=== PATIENT | female | born 1940 | race Caucasian/White ===

== ENCOUNTER 2022-04-07 07:56 | Outpatient (CLI) | payer MEDICARE, SELFPAY ==
--- NOTE | 2022-04-07 09:57 | W.ANESCHARGE ---
Anesthesia Charges Start Date/Time Anesthesia Start Date: 04/07/22 Anesthesia Start Time: 09:23 Stop Date/Time Anesthesia Stop Date: 04/07/22 Anesthesia Stop Time: 09:54 Summary Emergency: No Extremes of Age: Over 70-CPT 23651
--- NOTE | 2022-04-07 10:13 | W.ANESCHARGE ---
Anesthesia Charges Start Date/Time Anesthesia Start Date: 04/07/22 Anesthesia Start Time: 09:23 Stop Date/Time Anesthesia Stop Date: 04/07/22 Anesthesia Stop Time: 09:54 Summary Emergency: No Extremes of Age: Over 70-CPT 11305
== END 2022-04-07 07:57 | disposition home or self-care (01) ==
PROVIDERS: PCP Family Medicine; Visit Provider Internal Medicine Gastroenterology
DX: Z12.11 Encounter for screening for malignant neoplasm of colon (principal); K63.89 Other specified diseases of intestine; K64.8 Other hemorrhoids; K57.30 Diverticulosis of large intestine without perforation or abscess without bleeding; Z86.010 Personal history of colon polyps
CPT/HCPCS: 00811; 45380; 88305; 99100; J2704

== ENCOUNTER 2022-04-23 10:00 | Outpatient (RCR) | payer MEDICARE, SELFPAY | END 2022-04-28 16:48 | disposition home or self-care (01) | PROVIDERS: PCP Family Medicine; Visit Provider Podiatrist | DX: M76.60 Achilles tendinitis, unspecified leg (principal); Z51.89 Encounter for other specified aftercare | CPT/HCPCS: 97110; 97140; 97161 ==

== ENCOUNTER 2022-08-12 06:16 | Day surgery (SDC) | payer MEDICARE, SELFPAY ==
[2022-08-12] VITALS (24 sets, daily range): BP systolic 108–152; BP diastolic 41–122; PULSE 56–84; RESP 12–20; TEMP 35.9–37.1; O2SAT 93–98; BMI 29.5
[2022-08-12] MEDS: LACTATED RINGERS 1000 ML 1,000 ML 100 ML IV ×3 (07:15→18:33)
[2022-08-12] MEDS: SODIUM CHLORIDE 0.9 % (FLUSH) 10 ML SYRINGE IVF (07:16)
[2022-08-12] MEDS: BUPIVACAINE 0.25% 30 ML 20 ML INJECTION (08:42)
--- NOTE | 2022-08-12 09:05 | W.ANESCHARGE ---
Anesthesia Charges Start Date/Time Anesthesia Start Date: 08/12/22 Anesthesia Start Time: 07:34 Stop Date/Time Anesthesia Stop Date: 08/12/22 Anesthesia Stop Time: 09:11 Summary Extremes of Age - Over 70 or under 1: MDA
--- NOTE | 2022-08-12 09:15 | W.ANESCHARGE ---
Anesthesia Charges Start Date/Time Anesthesia Start Date: 08/12/22 Anesthesia Start Time: 07:34 Stop Date/Time Anesthesia Stop Date: 08/12/22 Anesthesia Stop Time: 09:11 Summary Extremes of Age - Over 70 or under 1: [employer]
--- NOTE | 2022-08-12 09:17 | PM.GSPRC ---
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 Due to the size and location of the adenoma different treatment options were reviewed including surgical intervention. Risks and benefits of operative intervention were discussed at length with the patient. Risks included but was not limited to: Bleeding, infection, risk of damage to surrounding structures, possible need for additional procedures, possible need to convert to an open operation and postoperative complications such as pneumonia, pulmonary emboli or ME. All questions and concerns were addressed with the patient agreeing to proceed. Procedure Description: After discussing the risks and benefits of the procedure, the patient signed informed consent.? The operative site was marked and the patient was brought to the operating room and placed on the operating table in supine position.? Care was taken to pad the patient's pressure points.?? The patient was then intubated by anesthesia.?? The operative site was then prepped and draped in the usual sterile fashion.? A time-out was then performed. Entrance to the abdomen was obtained via a 5 mm optical trocar in the left upper quadrant. The abdomen was insufflated and briefly surveyed for any signs of injury. There were none. A 12 mm port was placed lateral to the umbilicus as well as a 5 mm port in the left lower quadrant under direct vision. The patient was then placed in Trendelenburg position with the right side up. The small bowel was gently moved out of the way and the appendix was in view. A small amount of dissection was necessary to free the cecum from the lateral pelvic attachments. And epiploic appendage was also dissected away partially from the cecum wall with hook cautery. The appendix was then easily grasped and pulled into view. A mesenteric window was created between the base of the appendix and the mesoappendix. A 35 mm Endo-ROSALINE vascular load stapler was then used to transect the mesoappendix. Two 60 mm staple loads and 145 mm staple load was needed to transect the base of the appendix, taking a portion of the cecum with the specimen. Care was taken not to impinge upon or narrow the ileocecal valve. The staple lines were inspected for bleeding. There was none. The specimen was then sent to pathology for frozen evaluation. The pathologist called back and confirmed the presence of a sessile serrated adenoma with clear margins. The 12 mm port site fascia was closed with 0 Vicryl. All other ports were removed under direct visualization. The skin was then closed with absorbable subcuticular suture. Sterile dressings were then applied. Instrument sponge and needle counts were correct at the end of the case. The patient was then woken and transported to the PACU in stable condition. Findings: Sessile serrated adenoma at the appendiceal base, margins clear. Anesthesia: GETA Surgeon: Pretty Ricks MD Estimated blood loss (mL): 5 Specimen: Appendix Condition: stable Disposition: floor
[2022-08-12] MEDS: ONDANSETRON 2 MG/ML inj IVP (10:28)
[2022-08-12] MEDS: ACETAMINOPHEN 325 MG TABLET 650 MG PO (10:39)
[2022-08-12] MEDS: IBUPROFEN 600 MG TABLET PO (12:14)
--- NOTE | 2022-08-12 14:32 | PC.NURSE ---
End of Shift: Patient pleasant and cooperative. Patient vitally stable, lungs clear, BS WNL, IV running LR at 100. When science writer asks patient to rate pain, patient responds I don't know, patient did say she had a headache and abdomen was tender. Tylenol and ibuprofen given, 8mg of zophran given or nausea. Patient reported nausea resolved. Patient has been laying on side as her back hurts. Patient on 1 L of oxygen NC with sats in the mid 90's. Patient abdomen with x3 lap sites C/D/I. Patient tele=NSR. Patient has taken some ice chip and sips of water. Patient has not yet been out of bed.
[2022-08-12] MEDS: gemfibroziL 600 MG TABLET PO (16:46)
[2022-08-12] MEDS: TRAMADOL HCL 50 MG TABLET PO ×2 (16:46→22:38)
--- NOTE | 2022-08-12 22:54 | PC.NURSE ---
Shift [id number]- Patient is up with SBA- tolerates well. She is up to chair for supper and tolerates regular diet. Ice pack to abdomen, lap sites intact. She is voiding. PRN pain medication providing adequate pain relief. She currently appears restful.
[2022-08-13 04:18] VITALS: BP 117/61; PULSE 67; RESP 16; TEMP 36.4; O2SAT 96
[2022-08-13] MEDS: LACTATED RINGERS 1000 ML 1,000 ML 100 ML IV (04:21)
[2022-08-13] MEDS: IBUPROFEN 600 MG TABLET PO (05:02)
[2022-08-13] MEDS: gemfibroziL 600 MG TABLET PO (06:21)
[2022-08-13] MEDS: LEVOTHYROXINE 75 MCG TABLET PO (06:21)
--- NOTE | 2022-08-13 06:59 | PC.NURSE ---
Pt A&O. VSS on RA. PRN ibuprofen given for pain control. Pt reports adequate relief. SBA to bathroom. Lap sites x3 open to air w/out drainage.
[2022-08-13 07:37] VITALS: PULSE 61
[2022-08-13 08:00] VITALS: BP 113/62; PULSE 61; RESP 18; TEMP 36.6; O2SAT 95
[2022-08-13] MEDS: SERTRALINE 50 MG TABLET PO (08:59)
[2022-08-13] MEDS: LOSARTAN POTASSIUM 50 MG TABLET PO (08:59)
--- NOTE | 2022-08-13 09:47 | PM.DS1 ---
DS: Providers Provider Date Seen: 08/13/22 Primary care physician: Christy Hutson MD Attending Physician on discharge: Pretty Ricks MD DS: Summary Hospital Course Hospital Course: Patient is status post appendectomy and partial cecectomy. Postoperatively she did well. Her pain was controlled with Tylenol and ibuprofen. She was tolerating regular diet and ambulating without difficulty. Time Spent with Patient Time attestation: Total time spent providing and/or coordinating discharge services: Exam Narrative: Exam Narrative: General: Alert and oriented, no acute distress abdomen: Soft, appropriately tender over incision sites. Incisions are clean/dry / intact with Dermabond in place. Const: Vital Signs, click to edit/add: Vital Signs - 24 hr 08/12/22 09:58 08/12/22 10:00 08/12/22 10:17 Temperature 97.5 F L 96.7 F L 97.7 F Pulse Rate 56 L Pulse Rate [Right Pulse Oximeter] 59 L 61 Respiratory Rate 12 12 Blood Pressure [Le ft Arm] 108/49 L 116/49 L 136/122 H Pulse Oximetry 95 98 Oxygen Delivery Me thod Room Air Room Air Nasal Can nula Room Air Nasal Can nula Oxygen Flow Rate 1.5 1.5 08/12/22 10:30 08/12/22 10:45 08/12/22 11:28 Temperature 97.6 F 97.4 F L 97.7 F Pulse Rate Pulse Rate [Right Pulse Oximeter] 59 L 69 66 Respiratory Rate 12 12 12 Blood Pressure [Le ft Arm] 143/64 H 139/64 138/62 Pulse Oximetry 97 97 97 Oxygen Delivery Me thod Room Air Nasal Can nula Room Air Nasal Can nula Room Air Nasal Can nula Oxygen Flow Rate 1.5 1.5 1.5 08/12/22 11:45 08/12/22 13:22 08/12/22 13:24 Temperature 97.9 F 97.9 F Pulse Rate Pulse Rate [Right Pulse Oximeter] 67 83 66 Respiratory Rate 12 12 Blood Pressure [Le ft Arm] 134/66 150/68 H 135/67 Pulse Oximetry 97 95 Oxygen Delivery Me thod Room Air Nasal Can nula Room Air Nasal Can nula Room Air Nasal Can nula Oxygen Flow Rate 1 1 1 08/12/22 13:46 08/12/22 14:51 08/12/22 15:40 Temperature 97.6 F 98.6 F 98.6 F Pulse Rate Pulse Rate [Right Pulse Oximeter] 75 78 82 Respiratory Rate 12 14 18 Blood Pressure [Le ft Arm] 121/58 L 128/60 134/71 Pulse Oximetry 96 95 97 Oxygen Delivery Me thod Room Air Nasal Can nula Room Air Nasal Can nula Nasal Cannula Oxygen Flow Rate 1 1 1 08/12/22 17:06 08/12/22 19:00 08/12/22 23:00 Temperature 98.7 F 98.1 F Pulse Rate 82 Pulse Rate [Right Pulse Oximeter] 84 81 Respiratory Rate 16 16 Blood Pressure [Le ft Arm] 119/64 115/41 L Pulse Oximetry 96 93 Oxygen Delivery Me thod Room Air Room Air Oxygen Flow Rate 08/12/22 23:00 08/13/22 04:18 08/13/22 07:37 Temperature 97.6 F Pulse Rate 62 61 Pulse Rate [Right Pulse Oximeter] 67 Respiratory Rate 16 Blood Pressure [Le ft Arm] 117/61 Pulse Oximetry 96 Oxygen Delivery Me thod Room Air Oxygen Flow Rate Discharge Plan Discharge Disposition: Home, Self-Care Discharging Surgeon: Pretty Ricks Follow-Up Appointment: 2 week follow up, [facility] Prescriptions: New tramadol 50 mg tablet 50 mg PO Q6H PRN (Reason: pain) Qty: 5 0RF Continued ferrous gluconate 324 mg (38 mg iron) tablet 324 mg PO DAILY fluticasone propionate [Allergy Relief (fluticasone)] 50 mcg/actuation spray,suspension 2 spray intranasal DAILY PRN Rx Instructions: administer into each nostril gemfibrozil 600 mg tablet 600 mg PO BID Patient Comments: TAKE 1 TABLET (600 MG) BY MOUTH 2 TIMES DAILY BEFORE MEALS. levothyroxine 75 mcg tablet 75 mcg PO DAILY losartan [Cozaar] 50 mg tablet 50 mg PO DAILY omeprazole 20 mg capsule,delayed release(DR/EC) 20 mg PO BID sertraline [Zoloft] 50 mg tablet 50 mg PO DAILY cetirizine [Aller-Sherry] 10 mg tablet 10 mg PO HS Activity Level: No strenuous activity Activity Detail: No lifting > 20 lbs for 2 weeks. Discharge Diet: Regular Patient Instructions: Tramadol (By mouth), Surgical Site Infections (DC), General Anesthesia (DC), Laparoscopic Appendectomy (DC), Post-Operative Instructions: Appendectomy Additional Instructions: Ok to shower, do not soak in a bath or swim for 2 weeks. Take stool softeners as needed post op for constipation. Forms: Work/School Release Follow-up: Christy Hutson MD [Primary Care Provider] - Discharge Orders: Discharge Order (Routine); Ordered 08/13/22 Ordered By: Pretty Ricks
--- NOTE | 2022-08-13 12:16 | PC.NURSE ---
Pt up independently in room. Tolerating regular diet. Abdomen 3 lap sites closed with glue, intact. IV DC'd, cath tip intact. DC instructions given verbally and in writing to pt and family member. Questions answered, follow up instructions understood. DC @ 1210 via wheelchair to return home with family care through the weekend.
== END 2022-08-13 12:10 | disposition home or self-care (01) ==
LOC: SS 10:41 → MEDSURG 10:42
PROVIDERS: PCP Family Medicine; Visit Provider Surgery
PROC: 0DTJ4ZZ Resection of Appendix, Percutaneous Endoscopic Approach (ICD-10-PCS; CPT 44970; principal; 2022-08-12 07:30)
DX: D12.1 Benign neoplasm of appendix (principal)
CPT/HCPCS: 44970; 44238; 00840; 88309; 99100; A9270; J0330; J1100; J1335; J2405; J2704; J2710; J3010; J3490; J7120

== ENCOUNTER 2023-05-13 22:23 | Emergency (ER) | payer MEDICARE, SELFPAY ==
[2023-05-13 22:26] VITALS: BP 141/79; PULSE 98; RESP 16; TEMP 36.7; O2SAT 99; BMI 28.0
[2023-05-13 22:45] LABS: Appearance Urine Clear (Clear); Bilirubin Urine Negative (Negative); Blood Urine 2+ (Negative); Color Urine Yellow (Yellow); Glucose Urine Negative (Negative); Ketones Urine Trace (Negative); Leukocyte Esterase Urine Trace (Negative); Nitrite Urine Negative (Negative); Protein Urine Trace (Negative); Specific Gravity Urine 1.025 (1.000-1.030); Urobilinogen Urine 0.2 (0.2-1.0); pH Urine 6.5 (5.0-8.5)
[2023-05-13 22:57] LABS: Squamous Epithelial Cell Urine Few (None-Few)
[2023-05-13 23:00] LABS: Basophils Percent Auto 0.2 % (0.0-3.0); Eosinophils Percent Auto 0.5 % (0.0-7.0); Hematocrit 38.4 % (33.0-51.0); Hemoglobin* 12.5 gm/dL (12.0-16.0); Immature Granulocytes Pct Auto 0.2 %; Lymphocytes Percent Auto 19.4 % (20-44); Mean Corpuscular HGB Conc 33 gm/dL (32-36); Mean Corpuscular Hemoglobin 30 pg (26-34); Mean Corpuscular Volume 91 fL (80-100); Monocytes Percent Auto 10.1 % (0.0-11.0); Neutrophils Percent Auto 69.6 % (42.0-72.0); Platelet Count* 369 K/uL (140-440); RDW Coefficient of Variation % 12.5 % (11.5-15.5); White Blood Count* 11.72 K/uL (4.50-11.00)
[2023-05-13 23:10] LABS: Slide Review Reflex No
[2023-05-13 23:13] LABS: Chloride* 104 mmol/L (96-114); Sodium* 134 mmol/L (135-149)
[2023-05-13 23:14] LABS: Potassium* 3.5 mmol/L (3.6-5.1)
[2023-05-13 23:16] LABS: Anion Gap 9 mEq/L (7-15); Carbon Dioxide* 21 mmol/L (20-32); Creatinine* 0.7 mg/dL (0.5-1.5); Est. Creatinine Clearance* 35.88; Estimated Glomerular Filt Rate 86 ml/min
[2023-05-13 23:17] LABS: Blood Urea Nitrogen* 21 mg/dL (7-30); Calcium* 9.4 mg/dL (8.4-10.6); Glucose* 102 mg/dL (60-115)
--- NOTE | 2023-05-13 23:29 | CT_ITS ---
Patient: ALISA POOL Facility:?[facility] R[facility] Patient ID:?[id number] Site Patient ID:?[id number]. Site :?[id number] Study:?CT-Abdomen/Pelvis with 78cc [id number] contrast-05/14/2023 12:17:17 AM Ordering Physician:Tino Simon Final Report: INDICATION: Abdominal pain. TECHNIQUE: CT abdomen and pelvis acquired with 78 mL Isovue 370 contrast. COMPARISON: None. FINDINGS: Lower chest: No focal consolidation. Liver: No suspicious focal hepatic lesion. Gallbladder and bile ducts: Cholelithiasis. No secondary signs of acute cholecystitis. Pancreas: Unremarkable. Spleen: Unremarkable. Adrenal glands: Unremarkable. Kidneys: Kidneys enhance symmetrically, without hydronephrosis. Too small to characterize hypodense left renal lesions. Retroperitoneum: No lymphadenopathy. Bowel and mesentery: Short-segment severe colonic wall thickening/edema, with extensive associated inflammation. There are numerous prominent sigmoid colonic diverticula, however the appearance is favored to reflect severe colitis rather than diverticulitis. No definite evidence of bowel perforation at this time. Postsurgical changes at the cecum. Small hiatal hernia. Bladder: Unremarkable for degree of distention. Reproductive organs: Punctate calcification in the right ovary, nonspecific. Pelvic lymph nodes: No lymphadenopathy. Vessels: Scattered atherosclerotic calcifications. Abdominal wall: No acute abdominal wall abnormality. Bones: Multilevel degenerative changes of the spine. No suspicious/aggressive focal osseous lesion. IMPRESSION: 1. Severe short segment colitis of the mid sigmoid colon. 2. Cholelithiasis. Please note that all CT scans at this facility use dose modulation, iterative reconstruction, and/or weight-based dosing when appropriate to reduce radiation dose to as low as reasonably achievable. Dictated by Win Caro MD @ 05/14/2023 12:42:39 AM Signed by:?Win Caro MD @05/14/2023 12:42:39 AM (Electronic Signature)
--- NOTE | 2023-05-13 23:30 | ED.ABDPAIN ---
HPI - Abdominal Pain General Chief Complaint: Abdominal Pain Stated Complaint: Abdominal pain, fever Time Seen by Provider: 05/13/23 23:20 History of Present Illness HPI narrative: This 82-year-old female comes in reporting generalized abdominal pain and associated back pain that began yesterday. She states that it seems to come and go and reports that it might have been more intense last evening than it is now. She has not had any fevers. She does not report any diarrhea or vomiting. She did have her appendix removed last year. She states that she does have a history of diverticulosis but has never had diverticulitis. She does not report any blood in the stool. She has had some altered bowel frequency recently that she attributes to starting famotidine. Related Data Home Medications Medication Instructions Recorded Confirmed ferrous gluconate 324 mg (38 mg 324 mg PO DAILY 08/07/22 12/30/22 iron) tablet fluticasone propionate 50 2 spray intranasal DAILY PRN 08/07/22 12/30/22 mcg/actuation nasal spray,suspension (Allergy Relief (fluticasone)) gemfibrozil 600 mg tablet 600 mg PO BID 08/07/22 12/30/22 levothyroxine 75 mcg tablet 75 mcg PO DAILY 08/07/22 12/30/22 losartan 50 mg tablet (Cozaar) 50 mg PO DAILY 08/07/22 05/13/23 omeprazole 20 mg capsule,delayed 20 mg PO BID 08/07/22 05/13/23 release sertraline 50 mg tablet (Zoloft) 50 mg PO DAILY 08/07/22 05/13/23 loratadine 10 mg tablet (Claritin) 10 mg PO QDAY 12/30/22 05/13/23 multivitamin 1 tab PO QAM 12/30/22 05/13/23 amlodipine 5 mg tablet 5 mg PO DAILY 05/13/23 05/13/23 famotidine 20 mg tablet 20 mg PO BID PRN heartburn 05/13/23 05/13/23 fluticasone 250 mcg-salmeterol 50 1 ea inhalation BID 05/13/23 05/13/23 mcg/dose blistr powdr for inhalation (Abdulkadir Mckeon) Previous Rx's Medication Instructions Recorded tramadol 50 mg tablet 50 mg PO Q6H PRN pain #5 tabs 08/13/22 Allergies Allergy/AdvReac Type Severity Reaction Status Date / Time adhesive tape Allergy Verified 12/30/22 13:59 benzocaine Allergy Verified 12/30/22 13:59 [From Campho-Phenique] camphor Allergy Verified 12/30/22 13:59 [From Campho-Phenique] hydrocodone [From Vicodin] Allergy Verified 12/30/22 13:59 lisinopril Allergy Verified 12/30/22 13:59 menthol Allergy Verified 12/30/22 13:59 [From Campho-Phenique] Penicillins Allergy Verified 12/30/22 13:59 phenol [From Campho-Phenique] Allergy Verified 12/30/22 13:59 phenol liquid Allergy Verified 12/30/22 13:59 [From Campho-Phenique] pramoxine Allergy Verified 12/30/22 13:59 [From Campho-Phenique] [id number] Reductase Allergy Verified 12/30/22 13:59 Inhibitor tixocortol Allergy Verified 12/30/22 13:59 melaleuca Allergy blisters Uncoded 12/30/22 14:00 Review of Systems Status of ROS Reports: 10 or more systems reviewed and unremarkable except as noted in History and below Narrative Constitutional: No fevers, no weight gain or loss. Eyes: No discharge. No vision changes. HENT: No congestion, no sore throat, no ear pain. Cardiovascular: No chest pain, no palpitations. Respiratory: No shortness of breath, no wheezes, no cough. Gastrointestinal: No vomiting, no diarrhea. Abdominal pain as described above. Genitourinary: No dysuria, no hematuria. Musculoskeletal: Normal range of motion. Still should reports some left flank pain. She has not had a previous history of kidney stone. Skin: No rashes, no pruritis. Neurological: No dizziness, weakness, sensory change, speech change. Endo/Heme/Allergies: No bruising or bleeding. No polydipsia. Pysch: no suicidality, no anxiety, no insomnia. All other systems reviewed and are negative. [facility] Medical History (Updated 05/13/23 @ 23:51 by Rafy Stanley MD) Osteopenia ?M85.80 - Other specified disorders of bone density and structure, unspecified site (ICD-10) Iron deficiency anemia ?D50.9 - Iron deficiency anemia, unspecified (ICD-10) Unspecified essential hypertension ?I10 - Essential (primary) hypertension (ICD-10) Unspecified hypothyroidism ?E03.9 - Hypothyroidism, unspecified (ICD-10) Mixed hyperlipidemia ?E78.2 - Mixed hyperlipidemia (ICD-10) Surgical History (Updated 08/07/22 @ 08:31 by Lianna Chan RN) History of lumpectomy of right breast ?Z98.890 - Other specified postprocedural states (ICD-10) Social History Smoking Status: Former smoker How often do you have a drink containing alcohol: 2-3 times a week Alcohol type: beer and wine How many standard drinks containing alcohol do you have on a typical day: 1 or 2 AUDIT-C Alcohol total score: 3 Non-prescribed substance use: denies use Caffeine: Yes service: No Exam Narrative: Exam Narrative: Constitutional: Well-developed, well-nourished, no acute distress. HEENT: Normocephalic, atraumatic. Neck: Normal range of motion. Nontender. Supple. Heart: Regular. Systolic ejection murmur. Normal rate. Intact distal pulses. Lungs: Clear to auscultation. No chest discomfort. No wheezes, rhonchi, or rales. Abdomen: Normal bowel sounds. Diffuse tenderness in the abdomen. Mild rebound tenderness is present. Genitalia: Deferred. Back: No midline tenderness. Normal range of motion. Extremities: Normal range of motion. No injury. Skin: Intact. No rash. Warm. No erythema or pallor. Neurologic: No altered sensation. No weakness. Alert and oriented. Psychiatric: No suicidality. No anxiety or depression. No insomnia. Nursing notes and vitals signs are reviewed. Const: Vital Signs, click to edit/add: Vital Signs - 24 hr 05/13/23 22:26 Temperature 98.1 F Pulse Rate [Pulse Oximeter] 98 Respiratory Rate 16 Blood Pressure [Le ft Upper Arm] 141/79 H Pulse Oximetry 99 Oxygen Delivery Me thod Room Air Course Vital Signs Vital signs: Initial Vital Signs Temperature 98.1 F 05/13/23 22:26 Temperature Source Oral 05/13/23 22:26 Pulse Rate 98 05/13/23 22:26 Respiratory Rate 16 05/13/23 22:26 Blood Pressure 141/79 H 05/13/23 22:26 Blood Pressure Mean 99 05/13/23 22:26 Blood Pressure Position Sitting 05/13/23 22:26 Pulse Oximetry 99 05/13/23 22:26 Oxygen Delivery Method Room Air 05/13/23 22:26 Vital Signs Temperature 98.1 F 05/13/23 22:26 Pulse Rate 98 05/13/23 22:26 Respiratory Rate 16 05/13/23 22:26 Blood Pressure 141/79 H 05/13/23 22:26 Pulse Oximetry 99 05/13/23 22:26 Oxygen Delivery Method Room Air 05/13/23 22:26 Temperature 98.1 F 05/13/23 22:26 Pulse Rate 98 05/13/23 22:26 Respiratory Rate 16 05/13/23 22:26 Blood Pressure 141/79 H 05/13/23 22:26 Pulse Oximetry 99 05/13/23 22:26 Oxygen Delivery Method Room Air 05/13/23 22:26 MDM - Abdominal Pain MDM Narrative Medical decision making narrative: This patient comes in reporting back pain and abdominal pain as described above. She does arrive with normal vital signs. On exam of her abdomen she does have some mild rebound tenderness. I did discuss lab and imaging options with the patient. Labs are acquired and CT scan of the abdomen is ordered. Results for these tests are pending at the end of my shift. The overnight physician will look after results and proceed accordingly. Lab Data Labs: Lab Results 05/13/23 05/13/23 Range/Units 22:39 22:50 WBC 11.72 H (4.50-11.00) K/uL RBC 4.20 (4.00-5.20) m/uL Hgb 12.5 (12.0-16.0) gm/dL Hct 38.4 (33.0-51.0) % MCV 91 (80-100) fL MCH 30 (26-34) pg MCHC 33 (32-36) gm/dL RDW Coeff of Honey 12.5 (11.5-15.5) % Plt Count 369 (140-440) K/uL Neut % (Auto) 69.6 (42.0-72.0) % Lymph % (Auto) 19.4 L (20-44) % [place] % (Auto) 10.1 (0.0-11.0) % Eos % (Auto) 0.5 (0.0-7.0) % Baso % (Auto) 0.2 (0.0-3.0) % Neut # (Auto) 8.20 H (1.7-7.0) K/uL Lymph # (Auto) 2.30 (0.90-2.90) K/uL [place] # (Auto) 1.20 H (0.00-0.90) K/UL Eos # (Auto) 0.10 (0.00-0.50) K/uL Baso # (Auto) 0.00 (0.00-0.30) K/uL Abs Immat Gran (auto) 0.00 (0.00-0.30) K/uL Imm/Tot Granulo (auto) 0.2 % Sodium 134 L (135-149) mmol/L Potassium 3.5 L (3.6-5.1) mmol/L Chloride 104 (96-114) mmol/L Carbon Dioxide 21 (20-32) mmol/L Anion Gap 9 (7-15) mEq/L BUN 21 (7-30) mg/dL Creatinine 0.7 (0.5-1.5) mg/dL Estimated Creat Clear 35.88 Estimated GFR 86 ml/min Glucose 102 (60-115) mg/dL Calcium 9.4 (8.4-10.6) mg/dL Urine Color Yellow (Yellow) Urine Appearance Clear (Clear) Urine pH 6.5 (5.0-8.5) Ur Specific [place] 1.025 (1.000-1.030) Urine Protein Trace A (Negative) Urine Glucose (UA) Negative (Negative) Urine Ketones Trace A (Negative) Urine Blood 2+ A (Negative) Urine Nitrite Negative (Negative) Urine Bilirubin Negative (Negative) Urine Urobilinogen 0.2 (0.2-1.0) Ur Leukocyte Esterase Trace A (Negative) Urine RBC 2-5 A (0-2) Urine WBC 2-5 (0-5) Ur Squamous Epith Cells Few (None-Few) Urine Bacteria None (None) Discharge Plan Discharge Clinical Impression: Abdominal pain Prescriptions: No Action loratadine [Claritin] 10 mg tablet 10 mg PO QDAY Hold Instructions: Doctor's Order multivitamin Tablet 1 tab PO QAM fluticasone propion-salmeterol [Wixela Inhub] 250-50 mcg/dose blister with device 1 ea INHALATION BID amlodipine 5 mg tablet 5 mg PO DAILY famotidine 20 mg tablet 20 mg PO BID PRN (Reason: heartburn) ferrous gluconate 324 mg (38 mg iron) tablet 324 mg PO DAILY fluticasone propionate [Allergy Relief (fluticasone)] 50 mcg/actuation spray,suspension 2 spray intranasal DAILY PRN Rx Instructions: administer into each nostril gemfibrozil 600 mg tablet 600 mg PO BID Patient Comments: TAKE 1 TABLET (600 MG) BY MOUTH 2 TIMES DAILY BEFORE MEALS. levothyroxine 75 mcg tablet 75 mcg PO DAILY losartan [Cozaar] 50 mg tablet 50 mg PO DAILY Hold Instructions: Doctor's Order omeprazole 20 mg capsule,delayed release(DR/EC) 20 mg PO BID Hold Instructions: Doctor's Order sertraline [Zoloft] 50 mg tablet 50 mg PO DAILY Hold Instructions: Doctor's Order tramadol 50 mg tablet 50 mg PO Q6H PRN (Reason: pain) Qty: 5 0RF Hold Instructions: Doctor's Order Follow Up/Referrals: Christy Hutson MD [Primary Care Provider] -
[2023-05-14 01:18] VITALS: BP 135/74; PULSE 98; RESP 16; TEMP 36.7; O2SAT 99
[2023-05-14 01:19] VITALS: BP 135/74; PULSE 98; RESP 16; TEMP 36.7
== END 2023-05-14 01:19 | disposition home or self-care (01) ==
PROVIDERS: Emergency Provider Emergency Medicine Emergency Medical Services; PCP Family Medicine
DX: R10.84 Generalized abdominal pain (principal)
CPT/HCPCS: 36415; 74177; 80048; 81001; 85025; 87086; 99283; 99284; 99285; Q9967

== ENCOUNTER 2024-10-24 09:15 | Outpatient (RCR) | payer OTHER, MEDICARE, SELFPAY | END 2025-02-21 23:59 | disposition home or self-care (01) | PROVIDERS: PCP Family Medicine; Visit Provider Family Medicine | DX: M53.3 Sacrococcygeal disorders, not elsewhere classified (principal); M62.830 Muscle spasm of back; V40.5XXD Car driver injured in collision with pedestrian or animal in traffic accident, subsequent encounter; Z51.89 Encounter for other specified aftercare | CPT/HCPCS: 97110; 97140; 97162 ==